=== PATIENT | female | born 2000 | race African-American/Black ===

== ENCOUNTER 2018-09-08 13:53 | Emergency (ER) | payer SELFPAY | END 2018-09-08 14:34 | disposition left against medical advice (07) | LOC: UCCORT 13:53 | DX: J02.9 Acute pharyngitis, unspecified (principal); R05 Cough; R09.89 Other specified symptoms and signs involving the circulatory and respiratory systems; Z53.21 Procedure and treatment not carried out due to patient leaving prior to being seen by health care provider ==